=== PATIENT | female | born 1945 ===

== ENCOUNTER 2020-10-14 09:20 | Outpatient (CLI) | payer MEDICARE, OTHER ==
[2020-10-14] MEDS ORDERED: Magnevist 469MG/ML 20 ML VIAL ONE (09:49)
== END 2020-10-14 09:21 | disposition home or self-care (01) ==
LOC: BICMRI 09:20
PROVIDERS: ATTEND Psychiatry & Neurology Neurology
DX: G31.84 Mild cognitive impairment of uncertain or unknown etiology (principal); R53.1 Weakness; R42 Dizziness and giddiness; I67.82 Cerebral ischemia
CPT/HCPCS: 70553; 82565; A9579

== ENCOUNTER 2022-08-02 20:35 | Inpatient (IN) | payer MEDICARE ==
[2022-08-02 21:29] LABS: #Eosinphils 0.1 thou/uL (0.0-0.7); #Lymphocytes 1.5 thou/uL (1.20-3.40); #Monocytes 0.5 thou/uL (0.11-0.59); #Neutrophils 8.4 thou/uL (1.40-6.50); %Basophils 0.2 % (0.0-1.0); %Eosinophils 1.1 % (0.0-10.0); %Lymphocytes 14.3 % (21.0-51.0); %Monocytes 4.5 % (0.0-10.0); Hemoglobin 13.1 g/dL (12.0-16.0); Mean Corpuscular Hemoglobin 31.4 pg (27.0-31.0); Mean Corpuscular Volume 89.7 fl (78.0-98.0); Mean Platelet Volume 7.6 fL (7.4-10.4); Platelet Count 314 10x3/uL (130-400); Red Blood Cell (RBC) Count 4.16 mill/uL (4.20-5.40); White Blood Cell (WBC) Count 10.5 10x3/uL (4.8-10.8)
[2022-08-02 21:49] LABS: ALT (SGPT) 19 U/L (8-55); AST (SGOT) 17 U/L (5-34); Albumin 4.2 g/dL (3.4-4.8); Alkaline Phosphatase 66 U/L (40-110); Anion Gap 20 mmol/L (10-20); BUN (Urea Nitrogen) 11 mg/dL (9.8-20.1); Bilirubin, Total 0.2 mg/dL (0.2-1.2); Calc. Creatinine Clearance 0 mL/min (70-130); Calcium 9.7 mg/dL (7.8-10.44); Carbon Dioxide 20 mmol/L (23-31); Chloride 100 mmol/L (98-107); Estimated GFR 71; Globulin 3.1 g/dL (2.4-3.5); Glucose 172 mg/dL (83-110); Potassium 3.8 mmol/L (3.5-5.1); Protein, Total 7.3 g/dL (5.8-8.1); Sodium 136 mmol/L (136-145)
[2022-08-02 23:20] LABS: Bilirubin Negative (Negative); Blood, Urine Negative (Negative); Clarity Clear (Clear); Glucose, Urine (Dipstick) Normal (Negative); Ketone, Urine Trace mg/dL (Negative); Leukocyte Negative Leu/uL (Negative); Nitrite Negative (Negative); Protein, Urine (Dipstick) 20 mg/dL (Neg-Trace); Specific Gravity, Urine 1.039 (1.002-1.036); Urobilinogen Normal mg/dL (Less than 2)
[2022-08-02] MEDS ORDERED: levETIRAcetam 500 MG/5 ML VIAL ONE (23:34)
[2022-08-02] MEDS ORDERED: Labetalol HCl 100 MG/20 ML VIAL ONE (23:34)
[2022-08-02] MEDS ORDERED: Ondansetron PF 4 MG/2 ML Vial IVP PRN (23:45)
[2022-08-03 00:26] LABS: Lactic Acid 2.4 mmol/L (0.5-2.2)
[2022-08-03 01:00] VITALS: BMI 30.4
[2022-08-03] MEDS ORDERED: Acetaminophen 325 MG TAB ONE ×2 (02:15→11:23)
[2022-08-03] MEDS: Acetaminophen 325 MG TAB PO PRN ×3 (02:29→20:41)
[2022-08-03 05:00] LABS: #Eosinphils 0.1 thou/uL (0.0-0.7); #Monocytes 0.8 thou/uL (0.11-0.59); #Neutrophils 7.7 thou/uL (1.40-6.50); %Basophils 0.3 % (0.0-1.0); %Eosinophils 0.9 % (0.0-10.0); %Lymphocytes 18.7 % (21.0-51.0); %Monocytes 7.2 % (0.0-10.0); %Neutrophils 72.9 % (42.0-75.0); Hemoglobin 11.3 g/dL (12.0-16.0); Mean Corpuscular HGB CONC 33.2 g/dL (32.0-36.0); Mean Corpuscular Hemoglobin 30.2 pg (27.0-31.0); Mean Corpuscular Volume 90.9 fl (78.0-98.0); Platelet Count 275 10x3/uL (130-400); RBC Distribution Width 14.1 % (11.5-14.5); Red Blood Cell (RBC) Count 3.74 mill/uL (4.20-5.40); White Blood Cell (WBC) Count 10.6 10x3/uL (4.8-10.8)
[2022-08-03 05:09] LABS: Lactic Acid 2.2 mmol/L (0.5-2.2)
[2022-08-03 05:19] LABS: Anion Gap 15 mmol/L (10-20); BUN (Urea Nitrogen) 10 mg/dL (9.8-20.1); Calc. Creatinine Clearance 89 mL/min (70-130); Calcium 9.2 mg/dL (7.8-10.44); Carbon Dioxide 23 mmol/L (23-31); Chloride 102 mmol/L (98-107); Estimated GFR 84; Glucose 102 mg/dL (83-110); Potassium 3.2 mmol/L (3.5-5.1); Sodium 137 mmol/L (136-145)
[2022-08-03] MEDS: Levothyroxine Sodium 88 MCG TAB PO SCH (05:48)
[2022-08-03] MEDS ORDERED: Potassium Chloride 20 MEQ TAB ONE (06:52)
[2022-08-03] MEDS ORDERED: Potassium Chloride 20 MEQ TAB PO SCH (08:00)
[2022-08-03] MEDS ORDERED: Amlodipine 5 MG TAB ONE (16:22)
[2022-08-03] MEDS: Amlodipine 10 MG TAB PO SCH (16:41)
[2022-08-03] MEDS: levETIRAcetam 500 MG TAB PO SCH ×2 (16:42→20:41)
[2022-08-03] MEDS: Hydrochlorothiazide 25 MG TAB PO SCH (19:08)
[2022-08-03] MEDS: Polyethylene Glycol 3350 17 GM Packet PO SCH (19:08)
[2022-08-03] MEDS: Losartan 25 MG TAB PO SCH (19:08)
[2022-08-03] MEDS ORDERED: QUEtiapine 25 MG TAB PO SCH (20:30)
[2022-08-03] MEDS ORDERED: Donepezil HCl 10 MG TAB PO SCH (21:00)
[2022-08-04 05:48] LABS: #Basophils 0.1 thou/uL (0.0-0.2); #Eosinphils 0.3 thou/uL (0.0-0.7); #Lymphocytes 1.8 thou/uL (1.20-3.40); #Monocytes 0.5 thou/uL (0.11-0.59); #Neutrophils 3.8 thou/uL (1.40-6.50); %Eosinophils 3.9 % (0.0-10.0); %Lymphocytes 27.5 % (21.0-51.0); %Monocytes 8.2 % (0.0-10.0); %Neutrophils 59.3 % (42.0-75.0); Hemoglobin 11.6 g/dL (12.0-16.0); Mean Corpuscular HGB CONC 33.7 g/dL (32.0-36.0); Mean Corpuscular Hemoglobin 30.9 pg (27.0-31.0); Mean Corpuscular Volume 91.6 fl (78.0-98.0); Mean Platelet Volume 7.7 fL (7.4-10.4); Platelet Count 273 10x3/uL (130-400); RBC Distribution Width 14.1 % (11.5-14.5); Red Blood Cell (RBC) Count 3.76 mill/uL (4.20-5.40); White Blood Cell (WBC) Count 6.4 10x3/uL (4.8-10.8)
[2022-08-04 06:11] LABS: Anion Gap 12 mmol/L (10-20); BUN (Urea Nitrogen) 9 mg/dL (9.8-20.1); Calc. Creatinine Clearance 85 mL/min (70-130); Calcium 9.2 mg/dL (7.8-10.44); Carbon Dioxide 25 mmol/L (23-31); Chloride 104 mmol/L (98-107); Estimated GFR 78; Glucose 99 mg/dL (83-110); Magnesium 1.9 mg/dL (1.6-2.6); Potassium 3.3 mmol/L (3.5-5.1); Sodium 138 mmol/L (136-145)
[2022-08-04] MEDS: Levothyroxine Sodium 88 MCG TAB PO SCH (06:12)
[2022-08-04] MEDS: Polyethylene Glycol 3350 17 GM Packet PO SCH (08:49)
[2022-08-04] MEDS: Losartan 25 MG TAB PO SCH (08:49)
[2022-08-04] MEDS: Amlodipine 10 MG TAB PO SCH (08:49)
[2022-08-04] MEDS: levETIRAcetam 500 MG TAB PO SCH (08:49)
[2022-08-04] MEDS: Hydrochlorothiazide 25 MG TAB PO SCH (08:49)
[2022-08-04] MEDS ORDERED: Potassium Chloride 20 MEQ TAB PO SCH (09:15)
[2022-08-04 11:52] VITALS: TEMP 98.1
[2022-08-04 14:53] VITALS: BP 186/75
== END 2022-08-04 16:10 | disposition home health service (06) | DRG 101 ==
LOC: ERS 20:35 → ERHOLD 23:31 → NEURO 08-03 19:29 → OBSVTOIN 08-04 15:44
PROVIDERS: ADMIT Internal Medicine; ATTEND Internal Medicine
DX: R56.9 Unspecified convulsions (principal); E87.20 Acidosis, unspecified; I16.1 Hypertensive emergency; Z66 Do not resuscitate; I10 Essential (primary) hypertension; E78.5 Hyperlipidemia, unspecified; E03.9 Hypothyroidism, unspecified; F03.90 Unspecified dementia, unspecified severity, without behavioral disturbance, psychotic disturbance, mood disturbance, and anxiety; Z79.899 Other long term (current) drug therapy; Z79.890 Hormone replacement therapy; Z79.82 Long term (current) use of aspirin; Z90.710 Acquired absence of both cervix and uterus; Z82.0 Family history of epilepsy and other diseases of the nervous system
CPT/HCPCS: 36415; 36416; 70450; 70496; 70498; 74177; 80048; 80053; 81003; 83605; 83735; 84146; 85025; 93005; 94760; 95712; 95819; 95957; 96365; 96375; G0378; J1953